=== PATIENT | female | born 1960 | race Caucasian/White ===

== ENCOUNTER → 2024-10-06 08:10 | Outpatient (REF) | payer OTHER, SELFPAY | LOC: HWWDC 08:10 | PROVIDERS: ATTENDING PHYSICIAN Hospitalist | DX: Z12.31 Encounter for screening mammogram for malignant neoplasm of breast (principal) | CPT/HCPCS: 77063; 77067 ==

== ENCOUNTER 2024-11-21 06:12 | Day surgery (SDC) | payer OTHER, SELFPAY ==
[2024-11-21 07:40] VITALS: BMI 37.3
[2024-11-21 07:41] VITALS: BP 155/73
[2024-11-21] MEDS: NORMOSOL-R/PLASMALYTE-A 1000 IV (07:56)
[2024-11-21 08:38] VITALS: BP 105/47
[2024-11-21 08:53] VITALS: BP 101/58
[2024-11-21 09:08] VITALS: BP 98/60
== END 2024-11-21 09:20 | disposition home or self-care (01) ==
LOC: SDS 06:12
PROVIDERS: ATTENDING PHYSICIAN Otolaryngology
DX: D14.0 Benign neoplasm of middle ear, nasal cavity and accessory sinuses (principal); D49.1 Neoplasm of unspecified behavior of respiratory system; J34.89 Other specified disorders of nose and nasal sinuses
CPT/HCPCS: 30117; 88305; J1610